=== PATIENT | female | born 1985 | race Caucasian/White ===

== ENCOUNTER 2020-08-01 00:28 | Emergency (ER) | payer OTHER ==
[~2020-08-01] VITALS: Ht 172.7 cm; Wt 80.0 kg
[2020-08-01 00:32] VITALS: BP 130/81
== END 2020-08-01 01:25 | disposition home or self-care (01) ==
LOC: ER 00:28
DX: F15.10 Other stimulant abuse, uncomplicated (principal); F51.5 Nightmare disorder
CPT/HCPCS: 99283

== ENCOUNTER 2023-12-10 21:13 | Emergency (ER) | payer MEDICAID, OTHER ==
[~2023-12-10] VITALS: Ht 160 cm; Wt 68.0 kg
[2023-12-10 21:19] VITALS: TEMP 97.8; O2SAT 98
[2023-12-10 21:56] LABS: CHLORIDE 108 mEq/L (98-107); POTASSIUM 3.8 mEq/L (3.5-5.1); SODIUM 139 mEq/L (136-145)
[2023-12-10 21:57] LABS: CARBON DIOXIDE 27 mEq/L (21-32); HEMATOCRIT 39.8 % (36.0-48.0); MEAN CORPUSCULAR HEMOGLOBIN 32.5 pg (28.0-32.0); MEAN CORPUSCULAR HGB CONC 35.2 g/dL (31.0-37.0); MEAN CORPUSCULAR VOLUME 92.4 fL (81.0-99.0); PLATELET 221 x1000/uL (130-400); RED BLOOD CELL COUNT 4.31 mill/uL (4.2-5.4); RED CELL DISTRIBUTION WIDTH 12.3 % (11.6-14.6); WHITE BLOOD COUNT 6.5 x1000/uL (4.5-11.0)
[2023-12-10 21:58] LABS: CALCIUM 9.1 mg/dL (8.7-10.4)
[2023-12-10 22:03] LABS: CREATININE 0.7 mg/dL (0.6-1.0); GLUCOSE 114 mg/dL (70-105); UREA NITROGEN BLOOD 14 mg/dL (9-23)
[2023-12-10] MEDS: SODIUM CHLORIDE 0.9% 1,000 ML IV ONE (23:22)
[2023-12-10 23:59] LABS: HCG SCREEN NEGATIVE
[2023-12-11 04:09] VITALS: BP 113/76; PULSE 72; RESP 18; O2SAT 98
== END 2023-12-11 04:11 ==
LOC: ER 21:13
DX: S09.90XA Unspecified injury of head, initial encounter (principal); G89.11 Acute pain due to trauma; F15.10 Other stimulant abuse, uncomplicated; W18.39XA Other fall on same level, initial encounter; Y93.89 Activity, other specified; Y92.89 Other specified places as the place of occurrence of the external cause; Y99.8 Other external cause status
CPT/HCPCS: 99285; 96360; 70450; 80048; 82962; 84703; 85027; 36415; J7030